=== PATIENT | male | born 1960 | race Caucasian/White ===

== ENCOUNTER 2017-10-01 23:01 | Emergency (ER) | payer MEDICARE ==
[2017-10-01 23:21] VITALS: BP 154/85
--- NOTE | 2017-10-02 | ED Physician Documentation ---
PD HPI HEENT - Stated complaint Stated Complaint: FACIAL PAIN - Chief complaint Chief Complaint: General - History obtained from History obtained from: Patient, Family - History of Present Illness Timing - onset: Today Timing - details: Now resolved Associated symptoms: No: Facial swelling Similar symptoms before: Work up / diagnostics, Treatment Recently seen: Not recently seen - Additional information Additional information: Patient is a 57 year old male with a history of ms and trigeminal neuralgia. Patient states that he had an episode tonight that was crippling. He did not take any medications (he has carbamazepime and baclofen at home) He states that the pain resolved on its own but he was worried that the pain would come back and he did not know if there was anything he could do to prevent another episode. Review of Systems Ten Systems: 10 systems reviewed and negative PD PAST MEDICAL HISTORY - Past Medical History Past Medical History: Yes Neuro: None HEENT: None Other Past Medical History: TRIGEMINAL NEURALGIA.. - Allergies Allergies/Adverse Reactions: Allergies Allergy/AdvReac Type Severity Reaction Status Date / Time No Known Drug Allergies Allergy Verified 10/01/17 23:15 - Social History Does the pt smoke?: No Smoking Status: Never smoker Does the pt drink ETOH?: No Does the pt have substance abuse?: No - Immunizations Immunizations are current?: Yes - POLST Patient has POLST: No PD ED PE NORMAL - General General: Alert and oriented X 3, No acute distress, Well developed/nourished - HEENT HEENT: Atraumatic, Ears normal - Neck Neck: No JVD - Cardiac Cardiac: RRR - Respiratory Respiratory: No respiratory distress - Abdomen Abdomen: Non distended - Derm Derm: Normal color, No rash - Neuro Neuro: Alert and oriented X 3 Eye Opening: Spontaneous Motor: Obeys Commands Verbal: Oriented GCS Score: 15 Results - Vitals Vitals: Vital Signs - 24 hr 10/01/17 10/02/17 23:14 00:05 Temperature 36.9 C Heart Rate 66 Respiratory 17 17 Rate Blood Pressure 154/85 H O2 Saturation 99 Oxygen O2 Source Room air PD MEDICAL DECISION MAKING - ED course Complexity details: reviewed old records, considered differential, d/w patient, d/w family ED course: Patient was seen and examined at bedside. patient currently had no pain and stated that he did not want any medications. A lengthy discussion was had with the patient and the family about further care and follow up instructions. There was a small study that showed oral lidocaine helped and patient was given some lolicaines. Patient already had the appropriate medications at home. Patient required no further work up and was stable for discharge with outpatient follow up. Departure - Departure Disposition: 01 Home, Self Care Clinical Impression: Trigeminal neuralgia Condition: Good Instructions: ED Neuralgia Trigeminal Follow-Up: primary,care provider [Other] - Tomorrow Comments: Your symptoms today are being caused by trigeminal neuralgia. the first line treatment with would be carbamazepine. If you don't want to take that you can try the baclofen 5mg. tertiary would be to try the lidocaine intra orally. You may return to the emergency department at any time if the pain comes back. Discharge Date/Time: 10/02/17 00:05
== END 2017-10-02 00:05 | disposition home or self-care (01) ==
LOC: ED 23:01
DX: G50.0 Trigeminal neuralgia (principal); G35 Multiple sclerosis
CPT/HCPCS: 99283

== ENCOUNTER 2017-10-19 20:39 | Emergency (ER) | payer MEDICARE ==
[2017-10-19] MEDS ORDERED: methylPREDNISolone SUCCINATE 1,000 MG in SODIUM CHLORIDE 0.9% 250 ML IV STA (21:32)
[2017-10-19 22:04] LABS: BASOPHILS % (AUTO) 0.9 %; EOSINOPHILS # (AUTO) 0.1 10^3/uL (0.0-0.7); EOSINOPHILS % (AUTO) 4.1 %; HGB - HEMOGLOBIN 14.4 g/dL (14.0-18.0); LYMPHOCYTES # (AUTO) 0.3 10^3/uL (1.5-3.5); LYMPHOCYTES % (AUTO) 11.3 %; MEAN CORPUSCULAR HEMOGLOBIN 30.5 pg (27.0-31.0); MEAN CORPUSCULAR HGB CONC 32.9 g/dL (32.0-36.0); MEAN CORPUSCULAR VOLUME 92.8 fL (80.0-94.0); MEAN PLATELET VOLUME 9.1 fL (7.4-11.4); MONOCYTES # (AUTO) 0.6 10^3/uL (0.0-1.0); MONOCYTES % (AUTO) 23.3 %; NEUTROPHILS # (AUTO) 1.4 10^3/uL (1.5-6.6); NEUTROPHILS % (AUTO) 60.4 %; PLT - PLATELET COUNT 176 10^3/uL (130-450); RED BLOOD COUNT 4.73 10^6/uL (4.70-6.10); RED CELL DISTRIBUTION WIDTH 13.3 % (12.0-15.0); WHITE BLOOD COUNT 2.4 x10^3/uL (4.8-10.8)
[2017-10-19 22:05] LABS: ALBUMIN/GLOBULIN RATIO 1.6 (1.0-2.2); BILIRUBIN,TOTAL 0.5 mg/dL (0.2-1.0); CALCIUM 9.4 mg/dL (8.5-10.3); CREATININE 1.1 mg/dL (0.6-1.2); TOTAL PROTEIN 6.5 g/dL (6.7-8.2)
[2017-10-19 22:27] LABS: PLATELET ESTIMATE, MANUAL NORMAL (130-450,000) (NORMAL); PLATELET MORPHOLOGY 1+ GIANT PLATELETS (NORMAL); RBC MORPHOLOGY (MULTIPLE) NORMAL APPEARANCE (NORMAL)
[2017-10-19] MEDS ORDERED: WATER FOR INJECTION,STERILE 20 ML ONE (22:44)
--- NOTE | 2017-10-19 22:45 | ED Physician Documentation ---
History of Present Illness - Stated complaint Stated Complaint: MS/DIFFICULTY WALKING/COORD/LT SIDE WEAKNESS - Chief complaint Chief Complaint: Ext Problem - History obtained from History obtained from: Patient, Family - History of Present Illness Timing: Yesterday - Additonal information Additional information: Patient is a 57 year old male with a history of MS who is presenting to the emergency department for generalized weakness and difficulty with ambulation. patient states that he talked to his neurologist who recommended solumedrol 1000mg daily for three days. Review of Systems Constitutional: reports: Myalgias. denies: Fever, Chills Eyes: denies: Decreased vision Cardiac: denies: Chest pain / pressure, Palpitations Respiratory: denies: Cough, Wheezing GI: denies: Nausea, Vomiting Neurologic: reports: Generalized weakness. denies: Focal weakness, Numbness, Syncope, Headache, Head injury Immunocompromised: denies: Immunocompromised PD PAST MEDICAL HISTORY - Past Medical History Past Medical History: Yes Neuro: None, Multiple sclerosis, Other HEENT: None Other Past Medical History: Trigeminal Nerve neuralgia - Past Surgical History Past Surgical History: Yes General: Appendectomy - Present Medications Home Medications: Ambulatory Orders Medication Instructions Recorded Confirmed Pregabalin [Lyrica] cap PO TID 10/19/17 Solumedrol 1,000 mg IV DAILY #2 10/19/17 carBAMazepine [TEGretol] 10/19/17 - Allergies Allergies/Adverse Reactions: Allergies Allergy/AdvReac Type Severity Reaction Status Date / Time No Known Drug Allergies Allergy Verified 10/01/17 23:15 - Social History Does the pt smoke?: No Smoking Status: Never smoker Does the pt drink ETOH?: No Does the pt have substance abuse?: No - Immunizations Immunizations are current?: Yes - POLST Patient has POLST: No PD ED PE NORMAL - Vitals Vital signs reviewed: Yes - General General: Alert and oriented X 3, No acute distress, Well developed/nourished - HEENT HEENT: Atraumatic, PERRL - Neck Neck: Supple, no meningeal sign - Cardiac Cardiac: RRR - Respiratory Respiratory: No respiratory distress - Abdomen Abdomen: Non distended - Derm Derm: Normal color, Warm and dry - Extremities Extremities: No deformity - Neuro Neuro: Alert and oriented X 3, Normal speech Eye Opening: Spontaneous Motor: Obeys Commands Verbal: Oriented GCS Score: 15 - Psych Psych: Normal mood Results - Vitals Vitals: Vital Signs - 24 hr 10/19/17 10/19/17 10/19/17 20:48 23:09 23:49 Temperature 36.8 C 36.4 C L 36.5 C Heart Rate 57 L 57 L 57 L Respiratory 18 18 17 Rate Blood Pressure 143/88 H 127/82 H 140/92 H O2 Saturation 100 100 99 Oxygen O2 Source Room air - Labs Labs: Laboratory Tests 10/19/17 10/19/17 21:45 21:45 WBC 2.4 L RBC 4.73 Hgb 14.4 Hct 44.0 MCV 92.8 MCH 30.5 MCHC 32.9 RDW 13.3 Plt Count 176 MPV 9.1 Neut # (Auto) 1.4 L Lymph # (Auto) 0.3 L Sutton # (Auto) 0.6 Eos # (Auto) 0.1 Baso # (Auto) 0.0 Absolute Nucleated RBC 0.00 Nucleated RBC % 0.1 Manual Slide Review Indicated Platelet Estimate NORMAL (130-450,000) Platelet Morphology 1+ GIANT PLATELETS RBC Morph Micro Appear NORMAL APPEARANCE Sodium 134 L Potassium 4.3 Chloride 96 L Carbon Dioxide 31 Anion Gap 7.0 BUN 13 Creatinine 1.1 Estimated GFR (MDRD) 69 L Glucose 96 Calcium 9.4 Total Bilirubin 0.5 AST 32 ALT 44 Alkaline Phosphatase 56 Total Protein 6.5 L Albumin 4.0 Globulin 2.5 Albumin/Globulin Ratio 1.6 Lipase 30 PD MEDICAL DECISION MAKING - ED course Complexity details: reviewed old records, reviewed results, re-evaluated patient , considered differential, d/w patient, d/w family, d/w showroom sales consultant ED course: Patient was seen and examined at bedside. Case was discussed with patient's neurologist. the neurologist recommended basic labs and solumedrol 1000mg daily for three days. patient was treated with the first dose in the ER. prescriptions were written so that hopefully patient would be able to follow up in the [facility]. If patient was unable to obtain outpatient follow up he is to return to the ED for second dose of solumedrol. - Sepsis Event Vital Signs: Vital Signs - 24 hr 10/19/17 10/19/17 10/19/17 20:48 23:09 23:49 Temperature 36.8 C 36.4 C L 36.5 C Heart Rate 57 L 57 L 57 L Respiratory 18 18 17 Rate Blood Pressure 143/88 H 127/82 H 140/92 H O2 Saturation 100 100 99 Oxygen O2 Source Room air Departure - Departure Disposition: 01 Home, Self Care Clinical Impression: MS (multiple sclerosis) Condition: Good Instructions: Multiple Sclerosis Follow-Up: Provider,Other [Primary Care Provider] - Tomorrow Prescriptions: Solumedrol 1,000 mg IV DAILY #2 Comments: [place] [facility] [place]. If you don't hear from them you should call to schedule a follow up appointment tomorrow for the solumedrol. If you are unable to get into the clinic for an infusion you should return to the emergency department for your second dose of solumedrol. You may return to the emergency department at any time for new, worsening or uncontrollable symptoms. Discharge Date/Time: 10/19/17 23:52
[2017-10-19 23:50] VITALS: BP 140/92
== END 2017-10-19 23:52 | disposition home or self-care (01) ==
LOC: ED 20:39
DX: G35 Multiple sclerosis (principal)
CPT/HCPCS: 36415; 80053; 83690; 85025; 96365; 99283

== ENCOUNTER 2017-10-27 12:17 | Outpatient (CLI) | payer MEDICARE ==
[~2017-10-27 12:17] MED LIST: GADOBUTROL 10 MMOL/10 ML VIAL ONE
--- NOTE | 2017-10-28 13:39 | MRI Report ---
Procedure Date: 10/27/2017 Accession Number: [id number] / [id number] Procedure: MRI - Brain W/WO CPT Code: FULL RESULT: EXAM: MRI BRAIN WITHOUT AND WITH CONTRAST EXAM DATE: 10/27/2017 12:26 PM. CLINICAL HISTORY: Trigeminal neuralgia, right/MS. Pain in the right side of the face since July. History of multiple sclerosis for 26 years. Patient now using a walker/cane. COMPARISON: None. TECHNIQUE: Multiplanar, multisequence T1-weighted and fluid-sensitive MR sequences of the brain were performed. Sequences optimized for routine evaluation. Other: None. IV Contrast: 9 mL Gadavist. FINDINGS: Brain Volume: Mild diffuse atrophy is present. Parenchyma: There are multiple foci of FLAIR hyperintensity with corresponding T1 hypointensity present, consistent with demyelinating plaque. Lateral callosal, periventricular, deep, and subcortical white matter involvement is seen throughout the cerebral hemispheres. Involvement is seen in bilateral cerebellum and anterolaterally in the mid azael. No abnormal enhancement is seen to suggest active demyelination. No intracranial mass, hemorrhage, or abnormal enhancement is seen. No evidence of an acute infarct is seen. No abnormal enhancement. Ventricles/Cisterns: Mild prominence to the ventricular system and overlying cortical sulci is evident. No hydrocephalus. No abnormal extra-axial fluid collection or hemorrhage. Skull base: The floor of the middle cranial fossa and infratemporal fossa are unremarkable. The foramen ovale and foramen rotundum are symmetric and unremarkable. Orbits: There is questionable mild increased T2 signal seen within the retro-bulbar optic nerves bilaterally. No abnormal enhancement is seen. The globes, extraocular muscles, and orbital fat are unremarkable. Sella Turcica: Note is made of a partially empty sella turcica. The pituitary gland, cavernous sinuses, suprasellar cistern and optic chiasm are unremarkable. IAC: Symmetric and unremarkable. Vasculature: Normal signal flow void is seen in the major arterial structures at the skull base. The left vertebral artery is dominant primarily forming the basilar artery. The dural sinuses are patent and enhance normally. Sinuses: No acute sinus disease. Bones: No focal pathologic appearing marrow signal changes. Other: None. IMPRESSION: 1.White matter signal change throughout the cerebral hemispheres, cerebellum, brainstem, and optic nerves, consistent with the clinical history of multiple sclerosis. No abnormal enhancement is seen to suggest active demyelination. 2. Mild diffuse atrophy. Findings are likely a sequela of multiple sclerosis. 3. No acute infarct, mass, hemorrhage, or abnormal enhancement. RADIA
== END 2017-10-27 12:18 | disposition home or self-care (01) ==
LOC: DI 12:17
PROVIDERS: ATTEND Internal Medicine
DX: G35 Multiple sclerosis (principal); G50.0 Trigeminal neuralgia; G31.9 Degenerative disease of nervous system, unspecified
CPT/HCPCS: 70553; A9585

== ENCOUNTER 2017-11-09 14:02 | Outpatient (CLI) | payer MEDICARE ==
[2017-11-09 17:46] LABS: BUN - BLOOD UREA NITROGEN 15 mg/dL (6-20); CALCIUM 8.8 mg/dL (8.5-10.3); CARBAMAZEPINE (TEGRETOL) 5.7 ug/mL; CARBON DIOXIDE - CO2 29 mmol/L (21-32); CHLORIDE 101 mmol/L (101-111); GFR - MDRD 77 (>89); GLUCOSE 80 mg/dL (70-100); SODIUM 137 mmol/L (135-145)
== END 2017-11-09 14:03 | disposition home or self-care (01) ==
LOC: LAB.F 14:02
PROVIDERS: ATTEND Internal Medicine
DX: G35 Multiple sclerosis (principal); E03.9 Hypothyroidism, unspecified; R60.9 Edema, unspecified
CPT/HCPCS: 36415; 80048; 80156; 84443

== ENCOUNTER 2018-09-16 15:19 | Outpatient (CLI) | payer MEDICARE ==
--- NOTE | 2018-09-16 17:20 | MRI Report ---
Reason: MULTIPLE SCLEROSIS Procedure Date: 09/16/2018 Accession Number: [id number] / [id number] Procedure: MRI - Brain W/O CPT Code: FULL RESULT: EXAM: MRI BRAIN WITHOUT CONTRAST EXAM DATE: 09/16/2018 03:35 PM. CLINICAL HISTORY: 58-year-old with history of multiple sclerosis. Evaluate for interval change. COMPARISON: MR brain 10/27/2017. TECHNIQUE: Multiplanar, multisequence T1-weighted and fluid-sensitive MR sequences of the brain were performed. Sequences optimized for demyelinating disease evaluation. Other: None. IV Contrast: None. FINDINGS: Brain Volume: Mild diffuse cortical atrophy. Parenchyma/Dura: No acute parenchymal hemorrhage, mass, or midline shift. There is mild to moderate bilateral areas of juxtacortical, subcortical, and periventricular T2/FLAIR signal hyperintensity seen that appear similar in size and distribution to MR brain 10/27/2017. Extent of T1 hypointense lesions appear similar to prior study. There are T2 hyperintense lesions seen involving the genu of the corpus callosum (series 1001, image 14) similar to prior study. There are T2 hyperintense lesions involving the brainstem and cerebellum that appear similar to prior study. Compared to prior study there is no convincing evidence of new or enlarging T2 hyperintense lesion. No areas of restricted diffusion seen to suggest acute infarct. Ventricles/Cisterns: Again demonstrated is prominence of the atria and trigone of the lateral ventricles with overall ventricular size and configuration similar to prior study. There is a right lateral cerebellar convexity extra-axial collection seen likely representing arachnoid cyst similar to MR brain 10/27/2017. Orbits: The visualized orbits appear normal. Sella Turcica: The pituitary gland, cavernous sinuses, suprasellar cistern and optic chiasm are unremarkable. IAC: Symmetric and unremarkable. Vasculature: Normal signal flow void is seen in the major arterial structures at the skull base. Sinuses: No acute appearing sinus disease. Bones: No focal pathologic appearing marrow signal changes. 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 IMPRESSION: 1. Mild to moderate white matter changes seen that appears similar in size and distribution to MR brain 10/27/2017 and can be compatible with patient's history of demyelinating disease. Compared to prior study there is no definite new or enlarging T2 hyperintense lesion. Lack of contrast administration technically limits evaluation for active myelination. 2. No acute infarct, intracranial hemorrhage, mass, hydrocephalus, or midline shift. 3. Mild diffuse cortical atrophy. Findings are likely the sequela of multiple sclerosis. RADIA
--- NOTE | 2018-09-17 16:21 | MRI Report ---
Reason: MULTIPLE SCLEROSIS Procedure Date: 09/16/2018 Accession Number: [id number] / [id number] Procedure: MRI - Thoracic Spine W/O CPT Code: FULL RESULT: EXAM: MRI thoracic spine without contrast INDICATION: 58-year-old male with multiple sclerosis. Please evaluate for possible spinal cord involvement. TECHNIQUE: 1. Sagittal STIR, T1 and T2. 2. Axial T1 and T2. COMPARISON: None. FINDINGS: The patient declined the use of IV gadolinium for this examination. There is mild accentuation of the normal thoracic kyphosis. This could be positional. Alignment is otherwise unremarkable. There is absence of normal T2 signal from the disks at all levels from T1-T2 to at least T9-T10, confirming disk degeneration. However, no focal disk herniation is demonstrated. The spinal canal is widely patent throughout. There is degenerative facet arthrosis with associated bony hypertrophy giving rise to mild foraminal narrowing at a few levels. No significant-appearing stenosis is demonstrated. No evidence of thoracic nerve root impingement. Marrow signal intensity appears normal throughout. Abnormal T2 hyperintensity is identified in the right lateral columns of the spinal cord centered around the T2-T3 disk level, extending in the craniocaudad plane over a distance of roughly 11 mm (see image 8 of series 801) consistent with a demyelinating plaque. No other definite T2 hyperintense demyelinating plaque is identified in the thoracic spinal cord. IMPRESSION: 1. A T2 hyperintense demyelinating plaque is identified in the right lateral columns at T2-T3 level. 2. No other definite demyelinating disease is identified in the thoracic spinal cord.
--- NOTE | 2018-09-17 16:21 | MRI Report ---
Reason: MULTIPLE SCLEROSIS Procedure Date: 09/16/2018 Accession Number: [id number] / [id number] Procedure: MRI - Cervical Spine W/O CPT Code: FULL RESULT: EXAM: MRI cervical spine without contrast INDICATION: 58-year-old male with multiple sclerosis. Please evaluate for possible spinal cord involvement. TECHNIQUE: 1. Sagittal STIR, T1 and T2. 2. Axial T2 and T2* COMPARISON: None. FINDINGS: The patient declined the use of contrast for this examination. For this reason, only an unenhanced study has been performed. There is mild accentuation of the normal cervical lordosis. Vertebral alignment is otherwise essentially normal. There is absence of normal T2 signal from the disks at all levels, confirming disk degeneration. However, the disk space heights are maintained. There are tiny posterior protrusions at the C3-C4, C4-C5 and C5-C6 levels, with associated minimal mass effect on the ventral aspect of the thecal sac at all three levels. No associated spinal stenosis. At C5-C6, there appears to be mild to moderate foraminal narrowing, primarily from uncovertebral osteophyte. Otherwise, the neural foramina appear widely patent throughout. The marrow signal intensity is unremarkable. There is mild anterior wedging of the T1 vertebral body, consistent with the sequela of old healed endplate compression fracture. The vertebral body heights are otherwise preserved. T2 hyperintense demyelinating plaques are identified in the spinal cord as follows: 1. Lesion in the dorsal cord centrally and paracentrally to the right, extending from lower C2 to upper C3 over a distance of roughly 11 mm in the craniocaudad plane (see image 7 of series 601). 2. There appears to be a tiny lesion in the right side of the cord at C3-C4 disk level, best demonstrated on image 8 of series 601. 3. Lesion in the left lateral columns extending from upper C4 to upper C5 over a distance of roughly 13 mm in the craniocaudad plane (see image 5 of series 601). 4. Subtle focus of mildly increased T2 signal in the dorsal cord on the right at upper/mid C5 level, best demonstrated on image 7 of series 601. It appears to extend in the craniocaudad plane over a distance of roughly 5 mm. No other definite T2 hyperintense demyelinating plaques are demonstrated in the cervical spinal cord. IMPRESSION: 1. There appear to be at least four separate T2 hyperintense demyelinating plaques in the cervical spinal cord, as documented above. 2. There are very small central disk herniations at a few levels, as described. No associated spinal stenosis. No evidence of neural impingement.
== END 2018-09-16 15:20 | disposition home or self-care (01) ==
LOC: DI 15:19
PROVIDERS: ATTEND Internal Medicine
DX: G35 Multiple sclerosis (principal); M50.21 Other cervical disc displacement, high cervical region; M47.9 Spondylosis, unspecified
CPT/HCPCS: 70551; 72141; 72146

== ENCOUNTER 2018-11-02 11:15 | Outpatient (CLI) | payer MEDICARE | END 2018-11-02 11:16 | disposition home or self-care (01) | LOC: LAB.F 11:15 | PROVIDERS: ATTEND Internal Medicine | DX: E03.9 Hypothyroidism, unspecified (principal) | CPT/HCPCS: 36415; 84443 ==

== ENCOUNTER 2018-12-29 08:08 | Outpatient (CLI) | payer MEDICARE ==
[2018-12-29 11:16] LABS: BASOPHILS % (AUTO) 0.6 %; EOSINOPHILS # (AUTO) 0.2 10^3/uL (0.0-0.7); EOSINOPHILS % (AUTO) 4.7 %; HGB - HEMOGLOBIN 14.7 g/dL (14.0-18.0); LYMPHOCYTES # (AUTO) 0.2 10^3/uL (1.5-3.5); LYMPHOCYTES % (AUTO) 7.5 %; MEAN CORPUSCULAR HEMOGLOBIN 29.5 pg (27.0-31.0); MEAN CORPUSCULAR HGB CONC 30.8 g/dL (32.0-36.0); MEAN CORPUSCULAR VOLUME 95.8 fL (80.0-94.0); MEAN PLATELET VOLUME 10.9 fL (7.4-11.4); MONOCYTES # (AUTO) 0.5 10^3/uL (0.0-1.0); MONOCYTES % (AUTO) 16.5 %; NEUTROPHILS # (AUTO) 2.3 10^3/uL (1.5-6.6); NEUTROPHILS % (AUTO) 70.4 %; PLT - PLATELET COUNT 236 10^3/uL (130-450); RED BLOOD COUNT 4.98 10^6/uL (4.70-6.10); RED CELL DISTRIBUTION WIDTH 12.3 % (12.0-15.0); WHITE BLOOD COUNT 3.2 x10^3/uL (4.8-10.8)
[2018-12-29 11:34] LABS: ALBUMIN 4.1 g/dL (3.2-5.5); ALBUMIN/GLOBULIN RATIO 1.6 (1.0-2.2); BILIRUBIN,TOTAL 0.5 mg/dL (0.2-1.0); CALCIUM 9.3 mg/dL (8.5-10.3); TOTAL PROTEIN 6.6 g/dL (6.7-8.2)
[2018-12-30 10:56] LABS: HIV AG/AB 4TH GEN NON-REACTIVE (NON-REACTIVE)
== END 2018-12-29 08:09 | disposition home or self-care (01) ==
LOC: LAB.S 08:08
PROVIDERS: ATTEND Internal Medicine
DX: R61 Generalized hyperhidrosis (principal); Z13.21 Encounter for screening for nutritional disorder; E03.9 Hypothyroidism, unspecified
CPT/HCPCS: 36415; 81599; 82306; 84403; 85651; 86480; G0475; 80053; 84443; 85025; 87389

== ENCOUNTER 2019-09-06 17:55 | Outpatient (CLI) | payer MEDICARE | END 2019-09-06 17:56 | disposition home or self-care (01) | LOC: COV 17:55 | PROVIDERS: ATTEND Family Medicine | DX: M79.10 Myalgia, unspecified site (principal); R53.83 Other fatigue; R19.7 Diarrhea, unspecified | CPT/HCPCS: 81599 ==

== ENCOUNTER 2020-01-22 12:47 | Outpatient (CLI) | payer MEDICARE ==
[2020-01-22] MEDS ORDERED: GADOBUTROL 10 MMOL/10 ML VIAL ONE (14:46)
[2020-01-22] MEDS ORDERED: GADOBUTROL 10 MMOL/10 ML VIAL IVP ONE (15:14)
--- NOTE | 2020-01-22 18:23 | MRI Report ---
PROCEDURE: Cervical Spine W/WO INDICATIONS: MULTIPLE SCLEROSIS CONTRAST: IV CONTRAST: Gadavist ml: 8 TECHNIQUE: Noncontrast sagittal T1 spin echo and T2 fast spin echo, sagittal STIR, sagittal PD fast spin echo, f oraminal oblique sagittal T2 fast spin echo, axial gradient echo or T2 fast spin echo through the cer vical spine. After the administration of contrast, sagittal and axial T1 spin echo with fat saturati on through the cervical spine. COMPARISON: Prior cervical spine MRI 09/16/2018 Correlation is made with the accompanying brain MRI a nd thoracic MRI 01/22/2020. FINDINGS: Image quality: Motion artifact is noted. Alignment and curvature: There is normal bony alignment. Marrow: Marrow demonstrates normal overall signal. Spinal cord: Visualized spinal cord is normal in size. Within the posterior aspect of the cervical c ord within the dorsal white matter columns at C2-C3 level, there is again seen an elongated T2 hyperi ntense lesion. This is overall better seen on the prior examination. On the right at the C3-C4 level, there is a subtle T2 hyperintense white matter focus seen, as on series 701 image 9 and on series 80 1 image 24. This is also stable compared to the prior examination. Within the left lateral white elvira er column, there is an abnormal focus again seen, as on series 601 image 20 and on series 701 image 6 . This is similar to the prior examination. Within the posterior cervical cord on the right, there is a faintly seen focus along the superior aspect of C5, as on series 71 image 8 and on series 601 imag e 18. No new white matter lesions are seen. No suspicious intramedullary enhancement. No cerebellar tonsillar herniation. Paraspinous soft tissues: No paravertebral masses or suspicious enhancement. Mild, stable cervical spine degenerative changes are seen. IMPRESSION: Stable cervical cord white matter lesions are seen, which are consistent with the given clinical hist ory of multiple sclerosis. No new lesions are seen. No abnormal enhancement can be seen. Reviewed by: Doron Machado MD on 01/22/2020 5:21 PM AKJASMIN Approved by: Doron Machado MD on 01/22/2020 5:21 PM AKDT Station ID: [id number]
--- NOTE | 2020-01-22 18:29 | MRI Report ---
PROCEDURE: Thoracic Spine W/WO INDICATIONS: MULTIPLE SCLEROSIS CONTRAST: IV CONTRAST: Gadavist ml: 8 TECHNIQUE: Noncontrast sagittal T1 spin echo and T2 fast spin echo, sagittal STIR, axial T1 and T2 fast spin ech o through the thoracic spine. After the administration of contrast, axial and sagittal T1 spin echo with fat saturation through the thoracic spine. COMPARISON: Thoracic spine MRI 09/16/2018. Correlation is also made with the accompanying brain MRI a nd cervical spine MRI, 01/22/2020. FINDINGS: Image quality: Limited by motion artifact, particularly the postcontrast images. Alignment and curvature: There is normal bony alignment. Marrow: Marrow is of normal overall signal. No acute vertebral body compression fractures. Spinal cord: There is a poorly seen bilaterally lesions seen on the right at the T2-T3 level, as on s eries 7 and on one image 29 and on series 601 image 7. A relatively elongated T2 hyperintense lesion can be seen on the left which is centered at the T5 level, as on series 601 image 6 and on series 701 image 13. There is also an abnormal T2 hyperintense focus seen on the left at the T9 level, as on se danielle 601 image 6 and on series 901 image 32. These lesions do not enhance. Visualized spinal cord is of normal size, without abnormal enhancement. Paraspinous soft tissues: No paravertebral masses or abnormal enhancement. Miscellaneous: Mild, age-appropriate degenerative changes are seen throughout. Central canal and for ephraim appear widely patent at all scanned levels. IMPRESSION: There are newly identified T2 hyperintense lesions seen at T5 and T9. These lesions do not enhance. There is a stable lesion seen at T2-T3, which is a significant change compared to the prior examinati on. The imaging appearance is consistent with the given clinical history of multiple sclerosis. Reviewed by: Doron Machado MD on 01/22/2020 5:27 PM NAKUL Approved by: Doron Machado MD on 01/22/2020 5:27 PM AKJASMIN Station ID: [id number]
--- NOTE | 2020-01-24 17:16 | MRI Report ---
PROCEDURE: Brain W/WO INDICATIONS: MULTIPLE SCLEROSIS CONTRAST: IV CONTRAST: Gadavist ml: 8 TECHNIQUE: Noncontrast axial T1 spin echo, axial T2 fast spin echo, sagittal and axial FLAIR, coronal T2 fast sp in echo, axial gradient echo, axial diffusion and ADC through the brain. After the administration of contrast, axial and coronal T1 spin echo with fat saturation through the brain. COMPARISON: MRI brain 09/26/2019, 09/16/2018 FINDINGS: Image quality: Excellent. The ventricular system and cortical sulci are within normal limits for patient's stated age. There a re multiple foci of hyperintense T2/FLAIR signal in the periventricular and subcortical white matter . The majority of these lesions correspond to T1 hypointensity. In addition, hyperintense foci are n oted within the genuine the corpus callosum, unchanged. Additional foci within the brainstem and cere bellum are also noted. These areas are similar in size and number compared to prior exam. There are n onenhancing. There is no acute intra or extra-axial fluid collection. No acute hemorrhage, mass lesi on or midline shift. Brainstem is unremarkable. There are no areas of restricted diffusion. Globes are symmetrical. Sinuses are aerated. Osseous structures are intact. 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 IMPRESSION: 1. Stable appearance of multiple areas of cerebral and cerebellar as well as corpus callosum hyperint ensities as above consistent with given history of demyelinating disease. No lesions demonstrate rest ricted diffusion or contrast enhancement. Reviewed by: Mariposa Chisholm MD on 01/24/2020 5:14 PM PDT Approved by: Mariposa Chisholm MD on 01/24/2020 5:14 PM PDT Station ID: [id number]
== END 2020-01-22 12:48 | disposition home or self-care (01) ==
LOC: DI 12:47
DX: G35 Multiple sclerosis (principal)
CPT/HCPCS: 70553; 72156; 72157; A9585

== ENCOUNTER 2020-03-18 15:34 | Outpatient (CLI) | payer MEDICARE ==
--- NOTE | 2020-03-18 16:42 | XRAY Report ---
PROCEDURE: Ankle 3 View LT INDICATIONS: SWELLING OF ANKLE JOINT TECHNIQUE: 3 views of the ankle were acquired. COMPARISON: FINDINGS: Bones: No fractures or dislocations. Ankle mortise is normally aligned. No suspicious bony lesions . Soft tissues: No tibiotalar joint effusion. Achilles tendon appears normal. Calcifications are see n within the plantar fascia posteriorly, consistent with calcific tendinitis. IMPRESSION: No trauma found, no soft tissue swelling seen. 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 Reviewed by: Dante Osei MD on 03/18/2020 4:41 PM PST Approved by: Dante Osei MD on 03/18/2020 4:41 PM PST Station ID: [id number]
--- NOTE | 2020-03-18 16:43 | XRAY Report ---
PROCEDURE: Foot 3 View LT INDICATIONS: SWELLING OF ANKLE JOINT TECHNIQUE: 3 views of the foot were acquired. COMPARISON: Ankle plain films same day. FINDINGS: Bones: No fractures or dislocations. No suspicious bony lesions. Soft tissues: No tibiotalar joint effusion. Achilles tendon appears normal. Note is made of plantar fascia calcifications consistent with calcific tendinitis. IMPRESSION: Plantar fascial calcifications, no trauma found. Soft tissue swelling is not identified. Reviewed by: Dante Osei MD on 03/18/2020 4:42 PM PST Approved by: Dante Osei MD on 03/18/2020 4:42 PM PST Station ID: [id number]
== END 2020-03-18 15:35 | disposition home or self-care (01) ==
LOC: DI.S 15:34
PROVIDERS: ATTEND Nurse Practitioner Family
DX: M65.272 Calcific tendinitis, left ankle and foot (principal); M25.472 Effusion, left ankle